=== PATIENT | female | born 1975 | race Caucasian/White ===

== ENCOUNTER 2023-01-27 12:16 | Day surgery (SDC) | payer OTHER ==
[2023-01-27] VITALS (19 sets, daily range): BP systolic 103–150; BP diastolic 70–116
[~2023-01-27 12:16] MED LIST: ALLEGRA ALLERG180 MG PO; FAMO20 PO; RIZATRIPTAN10 MG SL; SUCR1 PO; TOPI100 PO; VERA240ER PO
--- NOTE | 2023-01-27 13:39 | NUR ---
01/27/23 Julia Connor HISTORY, CHART, MEDICATIONS AND ALLERGIES REVIEWED BEFORE START OF PROCEDURE. PATIENT CONFIRMS NPO STATUS AND AGREES WITH SCHEDULED PROCEDURE. 3-LEAD EKG REVIEWED WITH PHYSICIAN PRIOR TO START OF PROCEDURE. MONITOR INTACT WITH CONTINUOUS PULSE OXIMETRY,CAPNOGRAPHY, 3-LEAD EKG, INTERMITTENT BP. SUPPLEMENTAL O2 TO BE TITRATED THROUGHOUT PROCEDURE TO MAINTAIN O2 SATURATION ABOVE 90%. PATIENT DETERMINED TO BE ASA APPROPRIATE FOR PROPOFOL SEDATION PRIOR TO START OF PROCEDURE BY DR. GELLER.
--- NOTE | 2023-01-27 14:48 | NUR ---
Discharge instructions reviewed with patient. Patient verbalizes understanding. Copy given to patient to take home. PT TOLERATED WATER. Patient States Post-Procedure ride home has been arranged. Discharged via wheelchair to private car for ride home.
== END 2023-01-27 14:40 | disposition home or self-care (01) ==
LOC: ORSCMMR 12:16
PROVIDERS: Internal Medicine Gastroenterology
PROC: 0DJD8ZZ Inspection of Lower Intestinal Tract, Via Natural or Artificial Opening Endoscopic (ICD-10-PCS; principal; 2023-01-27 13:45)
DX: K62.89 Other specified diseases of anus and rectum (principal); Z86.010 Personal history of colon polyps; K64.8 Other hemorrhoids; K60.2 Anal fissure, unspecified
CPT/HCPCS: J2405; J2704; J7120

== ENCOUNTER 2023-07-23 06:35 | Day surgery (SDC) | payer OTHER ==
[~2023-07-23] VITALS: Ht 167.6 cm; Wt 76.6 kg
[2023-07-23] VITALS (15 sets, daily range): BP systolic 99–142; BP diastolic 67–96
--- NOTE | 2023-07-23 06:45 | NUR ---
Ambulatory in Day Surgery History, Chart, Medications and Allergies reviewed before start of procedure.Lungs clear T/O to Auscultation. Patient confirms NPO status and agrees with scheduled surgery. Patient reports completing Chlorhexadine shower X2 prior to admission to hospital.Surgical site prepped with 2% Chlorhexidine cloth wipe. Patient States Post-Procedure ride home has been arranged.
--- NOTE | 2023-07-23 09:45 | NUR ---
07/23/23 0945 Petar Urban I 20ML OF 0.5% BUPIVACAINE WITH EPINEPHRINE 1:200,000 USED FOR LOCAL ANESTHETIC.
--- NOTE | 2023-07-23 11:00 | NUR ---
PT ARRIVED TO THE ROOM AT APPROXIMATELY 1046. PT PAINFUL AND TEARFUL UPON ARRIVAL. PT PROVIDED WITH A HEATING PAD FOR COMFORT. PT'S AND THE BEDSIDE FOR SUPPORT. PT EDUCATED TO USE THE CALL LIGHT.
--- NOTE | 2023-07-23 11:50 | NUR ---
PAIN MANAGEMENT SINCE PT ARRIVED TO THE ROOM SHE HAS BEEN TEARFUL AND PAINFUL. IV FENTANYL GIVEN WITHOUT IMPROVEMENT IN PAIN LEVEL. DR LUJAN CALLED, UNABLE TO LEAVE A MESSAGE. TALKED WITH DR. SINGH AT 1154 REGARDING PAIN MANAGEMENT CONCERNS. SHE WAS NOTIFIED THAT PAIN MEDICATION HAS NOT BEEN EFFECTIVE. DR. LUJAN ORDERED ADDITIONAL DOSE OF FENTANYL AND OXYCODONE.
--- NOTE | 2023-07-23 13:21 | NUR ---
PAIN APPEARS TO BE IMPROVING. PT IS NOW RATING HER PAIN AT 9/10 INSTEAD OF 15/10. SHE HAS OCCASIONAL WAVES OF PAIN AND IS NO LONGER CRYING. PT EDUCATED ABOUT RISKS, BENEFITS, SIDE EFFECTS AND LIMITS OF PAIN MEDICATION. PT AND HER VERBALIZED UNDERSTANDING.
[2023-07-23 13:23] LABS: BASOPHILS ABSOLUTE AUTO 0.04 K/mm3 (0.00-0.23); BASOPHILS PERCENT AUTO 0 % (0-2); EOSINOPHILS ABSOLUTE AUTO 0.01 K/mm3 (0.00-0.68); EOSINOPHILS PERCENT AUTO 0 % (0-6); Hematocrit 40.3 % (33.0-51.0); Hemoglobin 13.9 g/dL (11.5-16.0); IMMATURE GRAN ABSOLUTE AUTO 0.05 K/mm3 (0.00-0.10); IMMATURE GRAN PERCENT AUTO 0 % (0-1); LYMPHOCYTES ABSOLUTE AUTO 0.65 K/mm3 (0.84-5.20); LYMPHOCYTES PERCENT AUTO 4 % (21-46); MONOCYTES ABSOLUTE AUTO 0.12 K/mm3 (0.16-1.47); MONOCYTES PERCENT AUTO 1 % (4-13); Mean Corpuscular HGB 32.6 pg (26.0-34.0); Mean Corpuscular HGB Conc 34.5 g/dL (31.5-36.5); Mean Corpuscular Volume 94 fL (80-100); Mean Platelet Volume 10.6 fL (9.1-12.4); NEUTROPHILS ABSOLUTE AUTO 15.72 K/mm3 (1.96-9.15); NEUTROPHILS PERCENT AUTO 95 % (41-73); Platelet Count 210 K/mm3 (150-400); RDW Coefficient Variation 11.5 % (11.7-14.2); RDW Standard Deviation 39.8 fL (35.1-46.3); Red Blood Cell Count 4.27 M/mm3 (3.80-5.20); White Blood Cell Count 16.59 K/mm3 (4.00-11.30)
[2023-07-23] MEDS ORDERED: Percocet 5-3251 EACH PO (15:33)
--- NOTE | 2023-07-23 18:56 | NUR ---
SHIFT SUMMARY PT IS POD#0 FROM [facility] WITH DR. SINGH. PAIN MANAGEMENT HAS BEEN A CONCERN, PT CONTINUES TO RATE HER PAIN AT 8-9/10 DESPITE OXYCODONE, FENTANYL, TYLENOL AND TORADOL USE. PT DOES REPORT PAIN HAS IMPROVED SINCE THIS MORNING WHEN SHE WAS RATING PAIN AT 15/10. SHE STATES THAT PAIN IS STILL NOT TOLERABLE AND SHE IS UNABLE TO SLEEP. PT HAS BEEN ABLE TO AMBULATE, VOID, AND TOLERATE PO. PT INDEPENDENT. FAMILY AT BEDSIDE FOR SUPPORT.
--- NOTE | 2023-07-23 19:56 | NUR ---
ELEVATED PAIN PT HAS REPORTED ELEVATED PAIN SINCE ARRIVAL TO THE ROOM FROM SURGERY. PT STARTED BY RATING HER PAIN AT 15/10, SHE WAS TEARFUL AT THAT TIME. PAIN HAS IMPROVED WITH ROUTINE ADMINISTRATION OF PAIN MEDICATION TO 8-9/10. AT A PAIN LEVEL OF 8-9 PT HAS OCCASIONAL GRIMACING BUT NOT CONSTANT. SHE APPEARS ABLE TO DISTRACT FROM PAIN WHILE TALKING WITH STAFF. SHE IS ABLE TO AMBULATE BUT STOPS MOVEMENT AND DESCRIBES "WAVES OF PAIN." PT IS NO LONGER TEARFUL.
[2023-07-24 02:44] VITALS: BP 130/84
--- NOTE | 2023-07-24 07:16 | NUR ---
SUMMARY PT REQUESTED ADDITIONAL PAIN MEDS AND REPORTED INITIAL MEDS INEFFECTIVE. I RECEIVED CALL BACK FROM DR VERDUGO PER CALL PLACED AT SHIFT CHANGE PER DAY RN. MEDS GIVEN PER NEW ORDERS.PT REPORTED IMPROVED EFFECTIVENESS, BUT STILL CONCERNED WITH PAIN CONTROL AND RECEIVED ATIVAN FOR SLEEP.PT INDEPENDANTLY AMBULATING,VOIDING WITHOUT DIFF.TOLERATING PO FLUIDS,SCANT VAG BLEED.
[2023-07-24 07:29] VITALS: BP 135/94
--- NOTE | 2023-07-24 12:48 | NUR ---
DISCHARGE PT DISCHARGED HOME FROM UNIT AT APROX 1222. PT GIVEN WRITTEN AND VERBAL DC INSTRUCTIONS AND VERBALIZED UNDERSTANDING OF THESE INSTRUCTIONS. IV REMOVED. WRITTEN RX FOR PAIN MEDICATION GIVEN TO PT PREVIOUSLY, STATES HE PICKED UP ALREADY. WC TO CAR.
== END 2023-07-24 12:46 | disposition home or self-care (01) ==
LOC: ORSCMMR 06:35 → ORD 08:00 → ORSCMMR 08:00 → SURS 10:39 → ORSCMMR 07-24 12:46
PROVIDERS: Obstetrics & Gynecology
PROC: 0UT9FZZ Resection of Uterus, Via Natural or Artificial Opening With Percutaneous Endoscopic Assistance (ICD-10-PCS; principal; 2023-07-23 08:00)
PROC: 0UT7FZZ Resection of Bilateral Fallopian Tubes, Via Natural or Artificial Opening With Percutaneous Endoscopic Assistance (ICD-10-PCS; principal; 2023-07-23 08:00)
PROC: 0UT0FZZ Resection of Right Ovary, Via Natural or Artificial Opening With Percutaneous Endoscopic Assistance (ICD-10-PCS; principal; 2023-07-23 08:00)
DX: R10.2 Pelvic and perineal pain (principal); N83.8 Other noninflammatory disorders of ovary, fallopian tube and broad ligament; N83.291 Other ovarian cyst, right side; D25.9 Leiomyoma of uterus, unspecified; N80.03 Adenomyosis of the uterus; N88.8 Other specified noninflammatory disorders of cervix uteri; Z79.899 Other long term (current) drug therapy
CPT/HCPCS: 36415; 85025; 88307; 94762; A9270; J0461; J0690; J1100; J1170; J1885; J2270; J2405; J2704; J3010; J7120

== ENCOUNTER 2023-08-18 17:45 | Emergency (ER) | payer OTHER ==
[~2023-08-18] VITALS: Ht 167.6 cm; Wt 72.6 kg
[~2023-08-18 17:45] MED LIST changes: +Percocet 5-3251 EACH PO
[2023-08-18 18:09] LABS: BASOPHILS ABSOLUTE AUTO 0.09 K/mm3 (0.00-0.23); BASOPHILS PERCENT AUTO 1 % (0-2); EOSINOPHILS ABSOLUTE AUTO 0.24 K/mm3 (0.00-0.68); EOSINOPHILS PERCENT AUTO 3 % (0-6); Hematocrit 40.4 % (33.0-51.0); IMMATURE GRAN ABSOLUTE AUTO 0.02 K/mm3 (0.00-0.10); IMMATURE GRAN PERCENT AUTO 0 % (0-1); LYMPHOCYTES ABSOLUTE AUTO 1.61 K/mm3 (0.84-5.20); LYMPHOCYTES PERCENT AUTO 18 % (21-46); MONOCYTES ABSOLUTE AUTO 0.52 K/mm3 (0.16-1.47); MONOCYTES PERCENT AUTO 6 % (4-13); Mean Corpuscular HGB 32.4 pg (26.0-34.0); Mean Corpuscular HGB Conc 34.7 g/dL (31.5-36.5); Mean Corpuscular Volume 94 fL (80-100); Mean Platelet Volume 10.2 fL (9.1-12.4); NEUTROPHILS ABSOLUTE AUTO 6.52 K/mm3 (1.96-9.15); NEUTROPHILS PERCENT AUTO 72 % (41-73); Platelet Count 231 K/mm3 (150-400); RDW Coefficient Variation 11.5 % (11.7-14.2); RDW Standard Deviation 39.5 fL (35.1-46.3); Red Blood Cell Count 4.32 M/mm3 (3.80-5.20)
[2023-08-18 18:28] LABS: Albumin, Blood 4.1 g/dL (3.4-5.0); Albumin/Globulin Ratio 1.4 (0.8-1.8); Bilirubin, Total 0.2 mg/dL (0.1-1.0); Bun/Creatinine Ratio 12.6 (12.0-20.0); Calcium, Blood 9.1 mg/dL (8.5-10.1); Creatinine, Blood 0.8 mg/dL (0.40-1.00); Potassium, Blood 3.7 mmol/L (3.5-5.5); Total Protein, Blood 7.1 g/dL (6.4-8.2)
[2023-08-18] MEDS ORDERED: Percocet 5-3251 EACH PO (22:13)
[2023-08-18 22:30] VITALS: BP 143/94
== END 2023-08-18 22:33 | disposition home or self-care (01) ==
LOC: ER 17:45
PROVIDERS: Emergency Medicine
DX: R10.31 Right lower quadrant pain (principal); K76.89 Other specified diseases of liver; Z98.890 Other specified postprocedural states; Z90.710 Acquired absence of both cervix and uterus; Z90.721 Acquired absence of ovaries, unilateral; Z88.0 Allergy status to penicillin; Z88.2 Allergy status to sulfonamides; Z79.899 Other long term (current) drug therapy
CPT/HCPCS: 74177; 80053; 85025; 96361; 96374; 99284-25; A9270; J1885; J7030; Q9967